=== PATIENT | female | born 1985 | race African-American/Black ===

== ENCOUNTER 2024-02-07 12:11 | Outpatient (CLI) | payer OTHER | END 2024-02-07 12:12 | disposition home or self-care (01) | LOC: SCSMRI 12:11 | PROVIDERS: ATTEND Anesthesiology Pain Medicine | DX: F07.81 Postconcussional syndrome (principal) | CPT/HCPCS: 70551 ==

== ENCOUNTER 2024-07-22 14:56 | Emergency (ER) | payer OTHER ==
[2024-07-22] MEDS ORDERED: Cyclobenzaprine 10 MG TAB ONE (17:08)
[2024-07-22] MEDS ORDERED: predniSONE 20 MG TAB ONE (17:08)
[2024-07-22] MEDS ORDERED: Ketorolac Tromethamine 30 MG (1 mL) VIAL ONE (17:08)
[2024-07-22] MEDS ORDERED: HYDROcodone/Acetaminophen 5/325 mg Tablet ONE (22:40)
== END 2024-07-23 00:28 | disposition home or self-care (01) ==
LOC: ERS 14:56
DX: M54.2 Cervicalgia (principal); M54.9 Dorsalgia, unspecified; I10 Essential (primary) hypertension; F17.210 Nicotine dependence, cigarettes, uncomplicated
CPT/HCPCS: 72141; 72146; 72148; 96372; J1885; J7512